=== PATIENT | male | born 2000 | race Hispanic/Latino ===

== ENCOUNTER 2022-01-17 01:10 | Emergency (ER) | payer MEDICARE ==
[~2022-01-17] VITALS: Ht 162.6 cm; Wt 81.7 kg
[2022-01-17] MEDS ORDERED: ADVIL200 M1 PO (01:55)
[2022-01-17] MEDS ORDERED: TYLOPHEN500 MG PO (01:57)
[2022-01-17] MEDS ORDERED: CYCLOBENZAPRINE10 MG PO (03:06)
--- NOTE | 2022-01-17 14:53 | EKG ---
[facility] [address] [facility] [place] [address] Signed Sinus tachycardia Otherwise normal ECG No previous ECGs available Confirmed by NELSON BANKS MD ([id number]) on 01/17/2022 2:52:48 PM Electronically Signed By: NELSON BANKS MD 01/17/22 1453 PATIENT NAME: RAJSARANKANIKA GARCIA Electrocardiogram DATE OF : [birth year] PHYSICIAN: NELSON BANKS MD REPORT #: [id number] REPORT IS CONFIDENTIAL AND NOT TO BE RELEASED WITHOUT AUTHORIZATION
== END 2022-01-17 03:28 | disposition home or self-care (01) ==
LOC: ED 01:10
DX: M94.0 Chondrocostal junction syndrome [Tietze] (principal)
CPT/HCPCS: 36415; 71045; 80053; 83690; 84443; 84484; 85025; 85379; 93005; 93010; 99285-25